=== PATIENT | female | born 1960 | race Caucasian/White ===

== ENCOUNTER 2016-03-31 11:22 | Inpatient (IN) | payer MEDICAID, OTHER ==
[~2016-03-31] VITALS: Ht 154.9 cm; Wt 87.7 kg
[2016-03-31 11:40] LABS: BASOPHILS % (AUTO) 0.6 % (0.0-2.0); EOSINOPHILS % (AUTO) 2.1 % (1.0-6.0); HEMATOCRIT 43.4 % (36-46); HEMOGLOBIN 14.5 g/dL (12.0-16.0); LYMPHOCYTES # (AUTO) 2.1 K/uL (1.0-4.8); LYMPHOCYTES % (AUTO) 33.5 % (22.0-44.0); MEAN CORPUSCULAR HEMOGLOBIN 31.5 pg (26.0-34.0); MEAN CORPUSCULAR HGB CONC 33.4 G/dL (31.0-37.0); MEAN CORPUSCULAR VOLUME 95 fL (80-100); MONOCYTES # (AUTO) 0.4 K/uL (0.1-1.0); MONOCYTES % (AUTO) 6.7 % (2.0-9.0); NEUTROPHILS # (AUTO) 3.5 K/uL (1.8-7.7); NEUTROPHILS % (AUTO) 57.1 % (40.0-70.0); PLATELET COUNT (AUTO) 265 K/uL (150-450); RED BLOOD CELL COUNT(AUTO) 4.59 MIL/uL (4.00-5.20); WHITE BLOOD COUNT (AUTO) 6.2 K/uL (4.5-11.0)
[2016-03-31 11:54] LABS: ANION GAP 8 mmol/L (8-16); CALCIUM, TOTAL 8.8 mg/dL (8.8-10.5); CARBON DIOXIDE 30 mmol/L (22-29); CHLORIDE 103 mmol/L (98-107); CREATININE 0.63 mg/dL (0.60-1.30); GLOMERULAR FILTR. RATE CALC > 60 mL/min (>60); POTASSIUM 3.9 mmol/L (3.5-5.1); SODIUM SERUM 141 mmol/L (136-145); UREA NITROGEN, BLOOD 11 mg/dL (7-18)
[2016-03-31 11:58] LABS: ALANINE AMINOTRANSFERASE 32 U/L (12-78); ASPARTATE AMINOTRANSFERASE 18 U/L (15-37); BILIRUBIN,TOTAL 0.2 mg/dL (0.1-1.0); TOTAL PROTEIN, SERUM 7.9 g/dL (6.4-8.2)
[2016-03-31] MEDS ORDERED: IBUPROFEN 600 MG TABLET PO ONE (15:45)
[2016-03-31] MEDS ORDERED: LORazepam 1 MG TABLET PO ONE (15:45)
[2016-03-31] MEDS ORDERED: HALOPERIDOL 5 MG TABLET PO PRN (15:45)
[2016-03-31] MEDS ORDERED: ZOLPIDEM TARTRATE 10 MG TABLET PO PRN (15:45)
[2016-03-31] MEDS ORDERED: LORazepam 2 MG TABLET PO PRN (15:45)
[2016-03-31 16:55] VITALS: BP 135/81
[2016-03-31] MEDS ORDERED: PNEUMOCOCCAL VACCINE POLYVALENT 0.5 ML VIAL [PPSV23] IM ONE (18:15)
[2016-03-31] MEDS ORDERED: ACETAMINOPHEN 325 MG TABLET PO PRN (19:00)
[2016-04-01 08:15] VITALS: BP 128/85
[2016-04-01] MEDS ORDERED: SERTRALINE HCL 50 MG TABLET PO SCH (09:00)
[2016-04-01] MEDS: OMEPRAZOLE 20 MG CAPSULE PO SCH (09:03)
[2016-04-01] MEDS: LOSARTAN POTASSIUM 50 MG TABLET PO SCH (09:03)
[2016-04-01] MEDS ORDERED: ALBUTEROL SULFATE HFA 90 MCG/PUFF 8 GM INHALER IH PRN (13:00)
[2016-04-01 18:12] VITALS: BP 111/74
[2016-04-01] MEDS ORDERED: SERTRALINE HCL 100 MG TABLET PO SCH (21:00)
[2016-04-02 04:25] VITALS: BP 123/76
[2016-04-02] MEDS: ACETAMINOPHEN 325 MG TABLET PO PRN (04:29)
[2016-04-02 07:22] LABS: HEMOGLOBIN A1C 5.3 % (4.5-6.2)
[2016-04-02 07:50] LABS: CHOL/HDL RATIO 4.4 (3.9-5.7); THYROID STIMULATING HORMONE 1.2 uIU/mL (0.36-3.74)
[2016-04-02 08:00] VITALS: BP 140/77
[2016-04-02] MEDS: LOSARTAN POTASSIUM 50 MG TABLET PO SCH (08:42)
[2016-04-02] MEDS: OMEPRAZOLE 20 MG CAPSULE PO SCH (08:42)
[2016-04-02] MEDS ORDERED: OMEPRAZOLE 20 MG CAPSULE PO SCH (09:00)
[2016-04-02] MEDS: IBUPROFEN 400 MG TABLET PO PRN (09:43)
[2016-04-02 09:44] VITALS: BP 142/77
[2016-04-02 17:00] VITALS: BP 121/78
[2016-04-02] MEDS ORDERED: SERTRALINE HCL 100 MG TABLET PO SCH (21:00)
[2016-04-03 03:45] VITALS: BP 113/70
[2016-04-03 03:54] VITALS: BP 113/64
[2016-04-03] MEDS: ACETAMINOPHEN 325 MG TABLET PO PRN (04:42)
[2016-04-03 08:00] VITALS: BP 130/90
[2016-04-03] MEDS: LOSARTAN POTASSIUM 50 MG TABLET PO SCH (09:43)
[2016-04-03] MEDS: OMEPRAZOLE 20 MG CAPSULE PO SCH (09:43)
[2016-04-03 16:59] VITALS: BP 127/81
[2016-04-03] MEDS ORDERED: SERTRALINE HCL 100 MG TABLET PO SCH (21:00)
[2016-04-04] MEDS: LOSARTAN POTASSIUM 50 MG TABLET PO SCH (10:59)
[2016-04-04] MEDS: OMEPRAZOLE 20 MG CAPSULE PO SCH (10:59)
[2016-04-04] MEDS ORDERED: SERT100T12 PO (11:30)
[2016-04-04] MEDS ORDERED: LOSA50TA37 PO (11:31)
[2016-04-04] MEDS ORDERED: OMEP20 PO (11:31)
[2016-04-04 12:13] VITALS: BP 120/82
[2016-04-04] MEDS: IBUPROFEN 400 MG TABLET PO PRN (12:13)
== END 2016-04-04 13:30 | disposition home or self-care (01) | DRG 751 ==
LOC: EMS 11:23 → 3EI 16:17
PROVIDERS: ADMIT Psychiatry & Neurology Child & Adolescent Psychiatry; ATTEND Psychiatry & Neurology Child & Adolescent Psychiatry
DX: F33.2 Major depressive disorder, recurrent severe without psychotic features (principal); R45.851 Suicidal ideations; I10 Essential (primary) hypertension; F41.0 Panic disorder [episodic paroxysmal anxiety]; G89.29 Other chronic pain; J45.909 Unspecified asthma, uncomplicated; K21.9 Gastro-esophageal reflux disease without esophagitis; M19.90 Unspecified osteoarthritis, unspecified site; Z82.49 Family history of ischemic heart disease and other diseases of the circulatory system; Z88.5 Allergy status to narcotic agent; Z81.8 Family history of other mental and behavioral disorders; Z82.5 Family history of asthma and other chronic lower respiratory diseases; Z88.8 Allergy status to other drugs, medicaments and biological substances; Z28.21 Immunization not carried out because of patient refusal
CPT/HCPCS: 83036; 84443; 99285; G0480; J3535

== ENCOUNTER 2017-12-31 00:39 | Emergency (ER) | payer MEDICAID, OTHER ==
[~2017-12-31] VITALS: Ht 157.5 cm; Wt 50.5 kg
[~2017-12-31 00:39] MED LIST: LOSA50TA25 PO; OMEP20 PO; SERT100T12 PO
[2017-12-31 01:15] LABS: BASOPHILS % (AUTO) 0.5 % (0.0-2.0); EOSINOPHILS % (AUTO) 1.6 % (1.0-6.0); HEMATOCRIT 45.6 % (36-46); HEMOGLOBIN 15.5 g/dL (12.0-16.0); LYMPHOCYTES # (AUTO) 2.2 K/uL (1.0-4.8); LYMPHOCYTES % (AUTO) 15.7 % (22.0-44.0); MEAN CORPUSCULAR HEMOGLOBIN 31.6 pg (26.0-34.0); MEAN CORPUSCULAR HGB CONC 34.1 G/dL (31.0-37.0); MEAN CORPUSCULAR VOLUME 93 fL (80-100); MONOCYTES # (AUTO) 0.6 K/uL (0.1-1.0); MONOCYTES % (AUTO) 4.1 % (2.0-9.0); NEUTROPHILS # (AUTO) 10.9 K/uL (1.8-7.7); NEUTROPHILS % (AUTO) 78.1 % (40.0-70.0); PLATELET COUNT (AUTO) 243 K/uL (150-450); RED BLOOD CELL COUNT(AUTO) 4.91 MIL/uL (4.00-5.20); RED CELL DISTRIBUTION WIDTH 12.7 % (11.5-14.5)
[2017-12-31 01:31] LABS: ANION GAP 10 mmol/L (8-16); CALCIUM, TOTAL 9.3 mg/dL (8.8-10.5); CARBON DIOXIDE 28 mmol/L (22-29); CHLORIDE 104 mmol/L (98-107); CREATININE 0.69 mg/dL (0.60-1.30); GLOMERULAR FILTR. RATE CALC > 60 mL/min (>60); GLUCOSE,RANDOM 148 mg/dL (70-110); POTASSIUM 3.3 mmol/L (3.5-5.1); SODIUM SERUM 142 mmol/L (136-145); UREA NITROGEN, BLOOD 9 mg/dL (7-18)
[2017-12-31 01:36] LABS: ALANINE AMINOTRANSFERASE 30 U/L (12-78); ALBUMIN 3.9 g/dL (3.4-5.0); ALKALINE PHOSPHATASE 114 U/L (46-116); ASPARTATE AMINOTRANSFERASE 15 U/L (15-37); BILIRUBIN,TOTAL 0.4 mg/dL (0.1-1.0); LIPASE 101 U/L (73-393); TOTAL PROTEIN, SERUM 7.6 g/dL (6.4-8.2)
[2017-12-31 01:39] LABS: APPEARANCE,URINE CLOUDY (CLEAR); BILIRUBIN,URINE NEGATIVE (NEGATIVE); GLUCOSE, URINE (UA) NEGATIVE (NEGATIVE); KETONES,URINE NEGATIVE (NEGATIVE); LEUKOCYTE ESTERASE ,URINE NEGATIVE (NEGATIVE); NITRATE,URINE NEGATIVE (NEGATIVE); OCCULT BLOOD,URINE TRACE (NEGATIVE); PROTEIN,URINE NEGATIVE (NEGATIVE); UROBILINOGEN,URINE 0.2 mg/dL (<=1.0)
[2017-12-31] MEDS ORDERED: POTASSIUM CHLORIDE 20 MEQ ER TABLET PO ONE (01:45)
[2017-12-31] MEDS ORDERED: ONDANSETRON HCL 4 MG/2 ML VIAL IVP ONE (01:45)
[2017-12-31] MEDS ORDERED: SODIUM CHLORIDE 0.9% 1,000 ML IV ONE (01:45)
[2017-12-31] MEDS ORDERED: KETOROLAC TROMETHAMINE 30 MG/ML VIAL IVP ONE (01:45)
[2017-12-31] MEDS ORDERED: FAMOTIDINE 10 MG/ML 2 ML VIAL IVP ONE (01:45)
[2017-12-31 01:46] LABS: SQUAMOUS EPITHELIAL CELL,UR Many /LPF (None Seen)
[2017-12-31 01:47] LABS: BACTERIA,URINE Few /HPF (None Seen); RBC,URINE 0-2 /HPF (0-2)
[2017-12-31 01:48] LABS: MUCUS,URINE Rare LPF (None Seen)
[2017-12-31] MEDS ORDERED: IOVERSOL 320 MG/ML 100 ML VIAL ONE (01:52)
[2017-12-31] MEDS ORDERED: SODIUM CHLORIDE 0.9% 100 ML ONE (01:52)
[2017-12-31 02:30] VITALS: BP 116/68
== END 2017-12-31 02:30 | disposition home or self-care (01) ==
LOC: EMS 00:40
DX: K29.70 Gastritis, unspecified, without bleeding (principal); K21.9 Gastro-esophageal reflux disease without esophagitis; I10 Essential (primary) hypertension; Z88.5 Allergy status to narcotic agent
CPT/HCPCS: 36415; 74177; 80053; 81001; 83690; 85025; 96361; 96374; 96375; 99285; J1885; J2405; J3490; J7030; J7050; Q9967